=== PATIENT | male | born 1955 | race Caucasian/White ===

== ENCOUNTER 2022-02-05 10:15 | Emergency (ER) | payer MEDICARE, OTHER, SELFPAY ==
[2022-02-05 11:09] VITALS: BP 139/70; PULSE 66; RESP 16; TEMP 36.8; O2SAT 98; BMI 24.3
--- NOTE | 2022-02-05 11:15 | XRR_ITS ---
PROCEDURE INFORMATION: Exam: XR Thoracic Spine Exam date and time: 02/05/2022 12:38 PM Age: 66 years old Clinical indication: Injury or trauma; Fall; Blunt trauma (contusions or hematomas); Additional info: Fall in shower TECHNIQUE: Imaging protocol: Radiologic exam of the thoracic spine. Views: 2 views. COMPARISON: CR (CHEST, ) 02/05/2022 12:34 PM FINDINGS: Bones/joints: Multilevel mild disc space narrowing. There are multilevel degenerative changes in the thoracic spine including marginal osteophyte formations, small degenerative Schmorl's nodes, and facet arthropathy. Soft tissues: Unremarkable. XR/XR thoracic spine 2V [id number] IMPRESSION: There are degenerative changes as described above. No evidence for acute fracture.
--- NOTE | 2022-02-05 11:15 | XRR_ITS ---
PROCEDURE INFORMATION: Exam: XR Left Ribs with PA Chest Exam date and time: 02/05/2022 12:34 PM Age: 66 years old Clinical indication: Injury or trauma; Fall; Rib area, left side; Blunt trauma; Additional info: Fall in shower TECHNIQUE: Imaging protocol: Radiologic exam of the Left ribs with PA chest. Views: 3 views COMPARISON: No relevant prior studies available. FINDINGS: Lungs: Unremarkable. No consolidation. Pleural spaces: Unremarkable. No pleural effusion. No pneumothorax. Heart/Mediastinum: Unremarkable. No cardiomegaly. Bones/joints: Unremarkable. XR/XR ribs LT mn 3V w CXR1V [id number] IMPRESSION: No acute findings.
--- NOTE | 2022-02-05 12:30 | W.ED.BACK ---
HPI - Back Pain/Injury General: Chief Complaint: Back Pain/Injury Stated Complaint: fall rib pain Time Seen by Provider: 02/05/22 12:22 Source: patient Mode of arrival: ambulatory Limitations: no limitations History of Present Illness: 66-year-old male presents to the ER today for left-sided low mid back and left rib pain after falling out of the shower this AM. Patient reports he is here traveling through the area and was in the shower at a hotel when he slipped and fell out, hitting his left ribs on the toilet. Patient denies hitting his head. Patient reports severe pain with deep breaths. Pain with movement is reported. Denies any cuts or bruising at this time. Denies any prior injury to the ribs. Review of Systems General: Reports: 10 or more systems reviewed and unremarkable except in HPI and below Physical Exam Const: COMMON NORMALS: average body habitus, patient oriented x3, no limitations, healthy appearing, alert and well nourished; apparent distress (no obvious distress but uncomfortable appearing) Neck/C-Spine: COMMON NORMALS: full ROM Chest: OTHER: Pt has tenderness over the posterior mid back along the spine and ribs 8-10. Pain is noted with movement and deep breaths. Resp: COMMON NORMALS: normal respiratory effort, No retractions and clear to auscultation bilaterally EFFORT & INSPECTION: Yes able to speak in complete sentences AUSCULTATION: clear to auscultation bilaterally Cardio: COMMON NORMALS: regular rate and regular rhythm RATE: regular rate RHYTHM: regular rhythm Back/Pelvis: OTHER: Patient has tenderness along the T-spine and left ribs 8 through 10. No deformities noted. Extremity: COMMON NORMALS: normal to inspection and full ROM Neuro: COMMON NORMALS: patient oriented x3 SENSORIUM/ORIENTATION: Yes alert Psych: COMMON NORMALS: mental status grossly normal, Normal thought process present and cooperative THOUGHT PROCESS: Normal thought process present Skin: COMMON NORMALS: no rashes or lesions noted GENERAL SKIN EXAM: no rashes or lesions noted Course ED course: 66-year-old male presents to the ER today for left sided rib pain and mid back pain after falling out of the shower this AM. Patient reports he fell out when he slipped and hit the toilet with his left side of his ribs. Patient reports pain with movement and deep breaths. Denies any deformities or swelling at this time. Denies any prior injury. Patient has not take anything for pain at this time. We will get an x-ray of the T-spine and left ribs. On exam patient is exquisitely tender to the left ribs 8 through 10. Vital Signs: Vital signs: Vital Signs Temperature 98.2 F 02/05/22 11:09 Pulse Rate 60 02/05/22 13:47 Respiratory Rate 18 02/05/22 13:47 Blood Pressure 152/96 02/05/22 13:47 Pulse Oximetry 98 02/05/22 13:47 MDM - Back Pain/Injury Medical Decision Making 66-year-old male presents to the ER today for left sided rib pain and mid back pain after falling out of the shower this AM. Patient reports he fell out when he slipped and hit the toilet with his left side of his ribs. Patient reports pain with movement and deep breaths. Denies any deformities or swelling at this time. Denies any prior injury. Patient has not take anything for pain at this time. We will get an x-ray of the T-spine and left ribs. On exam patient is exquisitely tender to the left ribs 8 through 10. X-ray of the T-spine and left rib study was normal. Patient likely has a rib contusion. I would recommend [id number] Tylenol alternate with Motrin. Recommend warm heat alternating with ice. Topical muscle rub however do not use with heat or ice. Deep breathing recommended to prevent pneumonia. Follow-up with PCP in 3 to 5 days. Return to the ER with new or worsening symptoms. Patient verbalized understanding and was in agreement with the treatment plan. Labs Radiology Impressions Ribs X-Ray 02/05/22 11:15 IMPRESSION: No acute findings. Thoracic Spine X-Ray 02/05/22 11:15 IMPRESSION: There are degenerative changes as described above. No evidence for acute fracture. Critical Care Time Critical Care Time: Critical Care Time: No Discharge Plan Discharge Patient Disposition: Home Clinical Impression: Contusion of rib on left side Qualifiers: Encounter type: initial encounter Qualified Code(s): S20.212A - Contusion of left front wall of thorax, initial encounter Condition: Stable Prescriptions: New methocarbamol 750 mg tablet 750 mg PO Q8H Qty: 21 0RF Discharge Orders: Discharge ED (Routine); Ordered 02/05/22 Ordered By: Clau Fernando Discharge Diet: Usual diet Discharge Activity: Increase activity as tolerated Patient Instructions: Opioid Safety Activity Restrictions/Additional Instructions: Take Robaxin as prescribed. Alternate Tylenol and Motrin [id number] for pain. Apply ice alternated with heat for comfort. Recommend deep breathing exercises to prevent pneumonias. Do not splint the ribs. Follow-up with PCP in 3 to 5 days. Return to the ER with new or worsening symptoms. Coding Level of Care Code ED Special Needs Caregiver for Wendi Fwd Exam Detailed
[2022-02-05 12:47] VITALS: BP 152/96; PULSE 54; RESP 18; O2SAT 98
[2022-02-05 13:47] VITALS: BP 152/96; PULSE 60; RESP 18; O2SAT 98
== END 2022-02-05 13:49 | disposition home or self-care (01) ==
PROVIDERS: Emergency Provider Physician Assistant
DX: S20.212A Contusion of left front wall of thorax, initial encounter (principal); W18.2XXA Fall in (into) shower or empty bathtub, initial encounter
CPT/HCPCS: 71101; 72070; 99283